=== PATIENT | male | born 2005 | race Caucasian/White ===

== ENCOUNTER → 2023-08-15 | Emergency (ER) | payer SELFPAY ==
--- NOTE | 2023-08-15 13:44 | ER ---
Nurse's Notes [facility] Name: Rod Martínez Age: 18 yrs Sex: Male : 2005 Arrival Date: 08/15/2023 Time: 12:33 Bed IW6 Private MD: Diagnosis: Acute upper respiratory infection, unspecified-RESOLVED Presentation: 08/15 13:01 Chief complaint: Patient states: past two days i called out of work bc I haven't felt iw well, I need a doctors note to go back , rasta been vomiting and having diarrhea , it's starting to get better , I just need a note to go to work tomorrow. Coronavirus screen: At this time, the client does not indicate any symptoms associated with coronavirus-19. Ebola Screen: Patient negative for fever greater than or equal to 101.5 degrees Fahrenheit, and additional compatible Ebola Virus Disease symptoms Patient denies exposure to infectious person. Patient denies travel to an Ebola-affected area in the 21 days before illness onset. No symptoms or risks identified at this time. Initial Sepsis Screen: Does the patient meet any 2 criteria? No. Patient's initial sepsis screen is negative. Does the patient have a suspected source of infection? No. Patient's initial sepsis screen is negative. Risk Assessment: Do you want to hurt yourself or someone else? Patient reports no desire to harm self or others. Onset of symptoms was August 13, 2023. 13:01 Method Of Arrival: Ambulatory iw 13:01 Acuity: SRIDHAR 4 iw Triage Assessment: 13:05 General: Appears in no apparent distress. Behavior is calm, cooperative. iw Historical: - Allergies: 13:03 No Known Allergies; iw - Home Meds: 13:03 None [Active]; iw - PMHx: 13:03 None; iw - Immunization history:: Adult Immunizations unknown. - Social history:: Smoking status: . Screenin:45 [facility] ED Fall Risk Assessment (Adult) Score/Fall Risk Level 0 - 2 = Low Risk. Abuse iw screen: Denies threats or abuse. Denies injuries from another. Nutritional screening: No deficits noted. Tuberculosis screening: No symptoms or risk factors identified. Assessment: 13:05 General: Appears in no apparent distress. Behavior is calm, cooperative. Pain: Denies iw pain. 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 Full function. Cardiovascular: Patient's skin is warm and dry. Respiratory: Respiratory effort is even, unlabored, Respiratory pattern is regular. GI: Abdomen is non-distended. Derm: Skin is intact, is healthy with good turgor. Musculoskeletal: Range of motion: intact in all extremities. Vital Signs: 13:01 BP 117 / 78; Pulse 56; Resp 16; Temp 98.4; Pulse Ox 100% on R/A; iw ED Course: 12:35 Patient arrived in ED. im 12:36 Daniel Velasquez MD is Attending Physician. [facility] 13:03 Triage completed. iw 13:03 Arm band placed on. iw 13:05 Patient has correct armband on for positive identification. Provided Education on: . iw 13:45 No provider procedures requiring assistance completed. Patient did not have IV access iw during this emergency room visit. 13:49 Nella Cee, RN is Primary Nurse. iw Administered Medications: No medications were administered Medication: 13:05 VIS not applicable for this client. iw Outcome: 13:43 Discharge ordered by . [facility] 13:48 Discharged to home ambulatory, iw 13:48 Condition: good 13:48 Discharge instructions given to patient, 13:49 Patient left the ED. iw Signatures: Daniel Velasquez MD MD cha Williams, Irene, RN RN Freida Joseph im
--- NOTE | 2023-08-15 13:44 | EDPHYS ---
Physician Documentation [facility] Name: Rod Martínez Age: 18 yrs Sex: Male : 2005 Arrival Date: 08/15/2023 Time: 12:33 Bed IW6 Private MD: ED Physician Daniel Velasquez HPI: 08/15 13:39 This 18 yrs old Male presents to ER via Ambulatory with complaints of Needs a michelle Doctor's Note. 13:39 NEEDS NOTE , COLD BETTER. Onset: The symptoms/episode began/occurred 3 day(s) ago. [facility] Severity of symptoms: At their worst the symptoms were mild in the emergency department the symptoms are unchanged. The patient has experienced similar episodes in the past, several times. Historical: - Allergies: 13:03 No Known Allergies; iw - Home Meds: 13:03 None [Active]; iw - PMHx: 13:03 None; iw - Immunization history:: Adult Immunizations unknown. - Social history:: Smoking status: . ROS: 13:40 Constitutional: Negative for fever, chills, and weight loss, Eyes: Negative for injury, michelle pain, redness, and discharge, ENT: Negative for injury, pain, and discharge, Neck: Negative for injury, pain, and swelling, Cardiovascular: Negative for chest pain, palpitations, and edema, Respiratory: Negative for shortness of breath, cough, wheezing, and pleuritic chest pain, Abdomen/GI: Negative for abdominal pain, nausea, vomiting, diarrhea, and constipation, Back: Negative for injury and pain, : Negative for injury, bleeding, discharge, and swelling, MS/Extremity: Negative for injury and deformity, Skin: Negative for injury, rash, and discoloration, Neuro: Negative for headache, weakness, numbness, tingling, and seizure, Psych: Negative for depression, anxiety, suicide ideation, homicidal ideation, and hallucinations, Allergy/Immunology: Negative for hives, rash, and allergies, Endocrine: Negative for neck swelling, polydipsia, polyuria, polyphagia, and marked weight changes, Hematologic/Lymphatic: Negative for swollen nodes, abnormal bleeding, and unusual bruising, Exam: 13:40 Constitutional: This is a well developed, well nourished patient who is awake, alert, michelle and in no acute distress. Head/Face: Normocephalic, atraumatic. Eyes: Pupils equal round and reactive to light, extra-ocular motions intact. Lids and lashes normal. Conjunctiva and sclera are non-icteric and not injected. Cornea within normal limits. Periorbital areas with no swelling, redness, or edema. ENT: Nares patent. No nasal discharge, no septal abnormalities noted. Tympanic membranes are normal and external auditory canals are clear. Oropharynx with no redness, swelling, or masses, exudates, or evidence of obstruction, uvula midline. Mucous membranes moist. Neck: Trachea midline, no thyromegaly or masses palpated, and no cervical lymphadenopathy. Supple, full range of motion without nuchal rigidity, or vertebral point tenderness. No Meningismus. Chest/axilla: Normal chest wall appearance and motion. Nontender with no deformity. No lesions are appreciated. Cardiovascular: Regular rate and rhythm with a normal S1 and S2. No gallops, murmurs, or rubs. Normal PMI, no JVD. No pulse deficits. Respiratory: Lungs have equal breath sounds bilaterally, clear to auscultation and percussion. No rales, rhonchi or wheezes noted. No increased work of breathing, no retractions or nasal flaring. Abdomen/GI: Soft, non-tender, with normal bowel sounds. No distension or tympany. No guarding or rebound. No evidence of tenderness throughout. Back: No spinal tenderness. No costovertebral tenderness. Full range of motion. Male : Normal genitalia with no discharge or lesions. Skin: Warm, dry with normal turgor. Normal color with no rashes, no lesions, and no evidence of cellulitis. MS/ Extremity: Pulses equal, no cyanosis. Neurovascular intact. Full, normal range of motion. Neuro: Awake and alert, GCS 15, oriented to person, place, time, and situation. Cranial nerves II-XII grossly intact. Motor strength 5/5 in all extremities. Sensory grossly intact. Cerebellar exam normal. Normal gait. Psych: Awake, alert, with orientation to person, place and time. Behavior, mood, and affect are within normal limits. Vital Signs: 13:01 BP 117 / 78; Pulse 56; Resp 16; Temp 98.4; Pulse Ox 100% on R/A; iw MDM: 12:37 Patient medically screened. [facility] 13:41 Data reviewed: vital signs, nurses notes. Consideration of Admission/Observation michelle Escalation of care including admission/observation considered. I considered the following discharge prescriptions or medication management in the emergency department Medications were administered in the Emergency Department. See MAR. Test considered but Not performed: Labs: NO LABS, NO TEST. Historians other than the Patient: PT WELL INFORMED. Care significantly affected by the following chronic conditions: NO HX. Counseling: I had a detailed discussion with the patient and/or guardian regarding the historical points, exam findings, and any diagnostic results supporting the discharge/admit diagnosis, the need for outpatient follow up, for definitive care, a family practitioner. Administered Medications: No medications were administered Disposition Summary: 08/15/23 13:43 Discharge Ordered Notes: Location: Home michelle Problem: new michelle Symptoms: have improved michelle Condition: Stable michelle Diagnosis - Acute upper respiratory infection, unspecified - RESOLVED michelle Followup: michelle - With: Private Physician - When: 2 - 3 days - Reason: Recheck today's complaints, Continuance of care, Re-evaluation by your physician Discharge Instructions: - Discharge Summary Sheet michelle - Cool Mist Vaporizer michelle - Cough, Adult michelle Forms: - Work release form michelle - Medication Reconciliation Form michelle - Thank You Letter michelle - Antibiotic Education michelle - Prescription Opioid Use michelle - Patient Portal Instructions michelle - Leadership Thank You Letter michelle Signatures: Daniel Velasquez MD MD cha Williams, Irene, RN RN iw
[2023-08-15 13:56] VITALS: BP 117/78; TEMP 98.4; O2SAT 100
== END ==
LOC: ER 12:33
DX: Z02.79 Encounter for issue of other medical certificate (principal)
CPT/HCPCS: 99282

== ENCOUNTER 2024-06-03 12:48 | Emergency (ER) | payer OTHER, SELFPAY ==
[2024-06-03 13:50] LABS: Absolute Eosinophils 0.3 K/uL (0-0.5); Absolute Lymphocytes (CBC) 1.6 K/uL (0.7-4.9); Absolute Monocytes 0.5 K/uL (0.1-1.3); Absolute Neutrophil 4.3 K/uL (1.8-8.0); Basophils % 0.4 % (0-1.3); Eosinophils % 4.1 % (0-4.4); Hematocrit 48.3 % (39.6-49.0); Hemoglobin 16.3 g/dL (13.6-17.9); Lymphocytes % 23.6 % (15.3-44.8); MCH 30.2 pg (27.0-35.0); MCHC 33.7 g/dL (32.0-36.0); MCV 89.5 fL (80-100); MPV 8.2 fL (7.6-11.3); Neutrophils % 64.9 % (41.7-73.7); Nucleated Red Blood Cells % 0.1 % (0-0); Platelets 185 thou/uL (152-406); Red Cell Distribution Width 13.5 % (12.1-15.2)
[2024-06-03 14:10] LABS: Albumin 4.3 g/dL (3.4-5.0); Albumin/Globulin Ratio 1.2 (1.1-1.8); Anion Gap 8.3 mEq/L (5.0-15.0); Bilirubin Direct 0.2 mg/dL (0-0.2); Bilirubin Indirect, Calculated 0.4 mg/dL (0.2-0.8); Bilirubin Total 0.6 mg/dL (0.2-1.0); Globulin 3.7 g/dL (2.3-3.5); Magnesium 2.1 mg/dL (1.6-2.4); Potassium 4.3 mEq/L (3.5-5.1); Troponin High Sensitivity 4.2 pg/mL (<58.9)
--- NOTE | 2024-06-03 14:49 | EDPHYS ---
Physician Documentation [facility] Name: Rod Martínez Age: 18 yrs Sex: Male : 2005 Arrival Date: 06/03/2024 Time: 12:48 Bed 5 Private MD: ED Physician Fernando Asif HPI: 06/03 13:08 This 18 yrs old Male presents to ER via Ambulatory with complaints of Chest Pain. sb4 13:08 Onset: The symptoms/episode began/occurred this morning. patient states he woke up this sb4 morning with stabbing left sided chest pain. he states that the pain subsided but the tightness feeling and palpitations continued throughout the day. he states that the pain returned at work so his boss sent him to be evaluated. he denies any current pain. reports history of depression, anxiety, and tourettes in which he does not take any medications for. denies any other medical problems. does vape daily. denies any recent URI symptoms. Historical: - Allergies: 12:58 No Known Allergies; ko1 - Home Meds: 12:58 None [Active]; ko1 - PMHx: 12:58 Depressive disorder; Anxiety; tourettes; ko1 - PSHx: 12:58 None; ko1 - Immunization history:: Adult Immunizations unknown. - Infectious Disease History:: Denies. - Social history:: Smoking status: Patient denies any tobacco usage or history of. ROS: 13:08 Constitutional: Negative for fever, chills, and weight loss, sb4 13:08 Cardiovascular: Positive for chest pain, 13:08 All other systems are negative, Exam: 13:08 Head/Face: Normocephalic, atraumatic. Eyes: Extra-ocular motions intact. Periorbital sb4 areas with no swelling, redness, or edema. ENT: Mucous membranes moist. Cardiovascular: Regular rate and rhythm with a normal S1 and S2. Respiratory: No increased work of breathing, no retractions or nasal flaring. Abdomen/GI: Soft, non-tender, no distension. Skin: Warm, dry with normal turgor. Normal color with no rashes, no lesions, and no evidence of cellulitis. 13:08 Constitutional: The patient appears alert, awake, anxious, Vital Signs: 12:55 BP 136 / 81; Pulse 110; Resp 19; Temp 97.6; Pulse Ox 100% ; ko1 14:28 BP 108 / 65; Pulse 64; Resp 18; Pulse Ox 98% on R/A; ph 15:10 BP 121 / 63; Pulse 87; Resp 17; Temp 97.7; Pulse Ox 100% on R/A; ap3 MDM: 13:02 Medical Screening Exam initiated sb4 14:47 Data reviewed: vital signs, nurses notes, lab test result(s), EKG, radiologic studies, sb4 and as a result, I will discharge patient. Counseling: I had a detailed discussion with the patient and/or guardian regarding the historical points, exam findings, and any diagnostic results supporting the discharge/admit diagnosis, lab results, radiology results, the need for outpatient follow up, for definitive care, to return to the emergency department if symptoms worsen or persist or if there are any questions or concerns that arise at home. 15:03 Scoring Tools HEART Score: History: ECG: Age: Risk Factors: No Risk Factors Known (0), sb4 Troponin: Total Score = 0. Special discussion: Based on the patient's history, exam, and Dx evaluation, there is no indication for emergent intervention or inpatient Tx. It is understood by the patient/guardian that if the Sx's persist or worsen they need to return immediately for re-evaluation. 06/03 13:08 Order name: Basic Metabolic Panel; Complete Time: 14:18 sb4 06/03 13:08 Order name: CBC with Diff; Complete Time: 14:07 sb4 06/03 13:08 Order name: LFT's; Complete Time: 14:18 sb4 06/03 13:08 Order name: Magnesium; Complete Time: 14:18 sb4 06/03 13:08 Order name: Troponin HS; Complete Time: 14:18 sb4 06/03 13:08 Order name: XRAY Chest (1 view); Complete Time: 16:25 sb4 06/03 13:08 Order name: Cardiac monitoring; Complete Time: 13:46 sb4 06/03 13:08 Order name: EKG - Nurse/Tech; Complete Time: 13:46 sb4 06/03 13:08 Order name: IV Saline Lock; Complete Time: 13:46 sb4 06/03 13:08 Order name: Labs collected and sent; Complete Time: 13:46 sb4 06/03 13:08 Order name: O2 Per Protocol; Complete Time: 13:46 sb4 06/03 13:08 Order name: O2 Sat Monitoring; Complete Time: 13:46 sb4 EC:43 Rate is 93 beats/min. Rhythm is regular, Normal Sinus Rhythm. [place] interval is normal at sb4 184 msec. QRS interval is normal at 74 msec. QT interval is normal at 308 msec. No Q waves. T waves are Normal. No ST changes noted. Clinical impression: No evidence of ischemia. Interpreted by me. Reviewed by me. Administered Medications: 15:09 Not Given (Patient Refused): [id number] mg IVP once ap3 Disposition: 16:01 Co-signature as Attending Physician, Fernando Asif MD I reviewed the patient's care rn provided by the Advanced Practice Provider and agree with the diagnosis and treatment plan. Disposition Summary: 06/03/24 14:48 Discharge Ordered Notes: Location: Home sb4 Problem: new sb4 Symptoms: have improved sb4 Condition: Stable sb4 Diagnosis - Chest pain, unspecified sb4 Followup: sb4 - With: Private Physician - When: 1 week - Reason: Recheck today's complaints, Re-evaluation by your physician Discharge Instructions: - Discharge Summary Sheet sb4 - Nonspecific Chest Pain, Adult sb4 - Pain Without a Known Cause sb4 Forms: - Work release form sb4 - Patient Portal Instructions sb4 - Leadership Thank You Letter sb4 Signatures: Dispatcher [employer] Fernando Castro MD MD rn Oliver, Kathy, RN RN ko1 Tish Gallego PA-C PA-C sb4 Maya Hardin RN ap3 Corrections: (The following items were deleted from the chart) 13:08 13:08 BASIC METABOLIC PANEL+C.LAB.BRZ ordered. EDMS EDMS 13:08 13:08 CBC+H.LAB.BRZ ordered. EDMS EDMS 13:08 13:08 HEPATIC FUNCTION+C.LAB.BRZ ordered. EDMS EDMS 13:08 13:08 MAGNESIUM+C.LAB.BRZ ordered. EDMS EDMS 13:08 13:08 Troponin High Sensitivity+C.LAB.BRZ ordered. EDMS EDMS 13:08 13:08 Chest Single View+RAD.RAD.BRZ ordered. EDMS EDMS
--- NOTE | 2024-06-03 14:49 | ER ---
Nurse's Notes [facility] Name: Rod Martínez Age: 18 yrs Sex: Male : 2005 Arrival Date: 06/03/2024 Time: 12:48 Bed 5 Private MD: Diagnosis: Chest pain, unspecified Presentation: 06/03 12:55 Chief complaint: Patient states: chest pain started at 0500 when I woke up, almost ko1 collapsed from left side chest pain. Coronavirus screen: At this time, the client does not indicate any symptoms associated with coronavirus-19. Ebola Screen: No symptoms or risks identified at this time. Initial Sepsis Screen: Does the patient meet any 2 criteria? No. Patient's initial sepsis screen is negative. Does the patient have a suspected source of infection? No. Patient's initial sepsis screen is negative. Risk Assessment: Do you want to hurt yourself or someone else? Patient reports no desire to harm self or others. Onset of symptoms was June 03, 2024. 12:55 Method Of Arrival: Ambulatory ko1 12:55 Acuity: SRIDHAR 3 ko1 Triage Assessment: 12:58 General: Appears in no apparent distress. Behavior is cooperative, anxious. Pain: ko1 Complains of pain in chest. Cardiovascular: Reports chest pain. Historical: - Allergies: 12:58 No Known Allergies; ko1 - Home Meds: 12:58 None [Active]; ko1 - PMHx: 12:58 Depressive disorder; Anxiety; tourettes; ko1 - PSHx: 12:58 None; ko1 - Immunization history:: Adult Immunizations unknown. - Infectious Disease History:: Denies. - Social history:: Smoking status: Patient denies any tobacco usage or history of. Screenin:45 [facility] ED Fall Risk Assessment (Adult) History of falling in the last 3 months, ph including since admission No falls in past 3 months (0 pts) Confusion or Disorientation No (0 pts) Intoxicated or Sedated No (0 pts) Impaired Gait No (0 pts) Mobility Assist Device Used No (0 pt) Altered Elimination No (0 pt) Score/Fall Risk Level 0 - 2 = Low Risk Oriented to surroundings, Maintained a safe environment, Hourly rounding (assess needs \T\ fall precautionary measures) done. Abuse screen: Denies threats or abuse. Denies injuries from another. Nutritional screening: No deficits noted. Tuberculosis screening: No symptoms or risk factors identified. Assessment: 13:44 General: Appears in no apparent distress. comfortable, slender, Behavior is ph cooperative, appropriate for age, anxious. Pain: Complains of pain in anterior aspect of right upper chest and anterior aspect of left upper chest. Pain: Pain does not radiate. Pain began this morning. Neuro: Level of Consciousness is awake, alert, obeys commands, Oriented to person, place, time, situation. Cardiovascular: Reports chest pain. Respiratory: Airway is patent Respiratory effort is even, unlabored, Respiratory pattern is regular, symmetrical. GI: No signs and/or symptoms were reported involving the gastrointestinal system. Derm: Skin is pink, warm \T\ dry. Musculoskeletal: Circulation, motion, and sensation intact. Range of motion: intact in all extremities. 14:20 Reassessment: Patient appears in no apparent distress at this time. Patient and/or ph family updated on plan of care and expected duration. Pain level reassessed. Patient is alert, oriented x 3, equal unlabored respirations, skin warm/dry/pink. Vital Signs: 12:55 BP 136 / 81; Pulse 110; Resp 19; Temp 97.6; Pulse Ox 100% ; ko1 14:28 BP 108 / 65; Pulse 64; Resp 18; Pulse Ox 98% on R/A; ph 15:10 BP 121 / 63; Pulse 87; Resp 17; Temp 97.7; Pulse Ox 100% on R/A; ap3 Vitals: 14:28 Cardiac Rhythm Assessment Sinus rhythm. ED Course: 12:50 Patient arrived in ED. mr 12:58 Tish Gallego PA-C is PHCP. sb4 12:58 Fernando Asif MD is Attending Physician. sb4 12:58 Triage completed. ko1 12:58 Arm band placed on right wrist. Patient placed in an exam room, on a stretcher, on ko1 telemetry monitor, on pulse oximetry, Patient notified of wait time. 13:06 Maya Hardin, JOSIAS is Primary Nurse. ap3 13:21 XRAY Chest (1 view) In Process Unspecified. EDMS 13:45 Patient has correct armband on for positive identification. Bed in low position. Call light in reach. Side rails up X 1. Client placed on continuous cardiac and pulse oximetry monitoring. NIBP monitoring applied. manager monitoring on. Door closed. Noise minimized. Pillow given. 13:45 Initial lab(s) drawn, by me, sent to lab. EKG done, by ED staff, reviewed by Tish Gallego PA-C. Inserted saline lock: 22 gauge in right antecubital area, using aseptic technique. Blood collected. Flushed with 10 mL NS. Patient maintains SpO2 saturation greater than 95% on room air. 13:46 Basic Metabolic Panel Sent. ph 13:46 CBC with Diff Sent. ph 13:46 LFT's Sent. ph 13:46 Magnesium Sent. ph 13:46 Troponin HS Sent. ph 15:09 No provider procedures requiring assistance completed. IV discontinued, intact, ap3 bleeding controlled, No redness/swelling at site. Pressure dressing applied. 15:10 Provided Education on: discharge instructions. ap3 Administered Medications: 15:09 Not Given (Patient Refused): mg IVP once ap3 Medication: 13:45 VIS not applicable for this client. ph Outcome: 14:48 Discharge ordered by . sb4 15:10 Discharged to home ambulatory, ap3 15:10 Condition: good 15:10 Discharge instructions given to patient, Instructed on discharge instructions, follow up and referral plans. Demonstrated understanding of instructions, follow-up care, 15:10 Patient left the ED. ap3 Signatures: Dispatcher [employer] EDNJ Candice Obrien, Reg Reg mr AdamsonLeona RN RN ph Prokisch, Amanda, RN RN ap3 Azalea Ayala RN RN ko1 Brown, Sophia, PA-C PA-C sb4
--- NOTE | 2024-06-03 15:07 | RAD REPORT ---
EXAMINATION: ONE VIEW CHEST XR CLINICAL INDICATION: Male, 18 years old.,CHEST PAIN TECHNIQUE: Frontal chest projection is submitted. Examination is limited by patient positioning and t echnique. COMPARISON: No prior exam. FINDINGS: The lungs are well inflated and clear. No pneumothorax or sizable effusion. The heart is normal in s ize. Mediastinal contours are unremarkable. IMPRESSION: No acute intrathoracic abnormalities.
[2024-06-03 20:52] VITALS: BP 121/63; TEMP 97.7; O2SAT 100
== END 2024-06-03 15:10 | disposition home or self-care (01) ==
LOC: ER 12:48
DX: R07.9 Chest pain, unspecified (principal)
CPT/HCPCS: 36415; 71045; 80048; 80076; 83735; 84484; 85025; 99284

== ENCOUNTER 2024-06-28 21:26 | Emergency (ER) | payer OTHER ==
--- NOTE | 2024-06-28 22:37 | RAD REPORT ---
EXAM: Chest Pa And Lat (2 Views) HISTORY: 19 years Male COUGH COMPARISON: 06/03/2024 FINDINGS: LUNGS/PLEURA: The lungs are clear. No pleural effusions or pneumothorax. No pulmonary edema. MEDIASTINUM: The mediastinal silhouette is within normal limits. CARDIAC: The cardiac silhouette is within normal limits. UPPER ABDOMEN: No significant abnormality. BONES: No acute abnormality. LINES/TUBES/OTHER: N/A IMPRESSION: No evidence of acute cardiopulmonary disease.
[2024-06-28 23:28] LABS: SARS-CoV-2 Antigen CONTROL BLUE LINE VIS/BG OK; SARS-CoV-2 Antigen Rapid Res Negative (Negative)
--- NOTE | 2024-06-28 23:32 | EDPHYS ---
Physician Documentation [facility] Name: Rod Martínez Age: 19 yrs Sex: Male : 2005 Arrival Date: 06/28/2024 Time: 21:26 Bed DX5 Private MD: ED Physician Daniel Velasquez HPI: 06/28 23:23 This 19 yrs old Male presents to ER via Ambulatory with complaints of Flu dr5 Symptoms. 23:23 Onset: The symptoms/episode began/occurred 5 day(s) ago. Patient is a 19-year-old male dr5 coming in with flulike symptoms that worsened this morning. Patient reports he has not felt well for 5 days that acutely worsened this morning. Patient reports cough, congestion, fever. Patient reports family was over at [place] and multiple members were sick with viral infections.. Historical: - Allergies: 22:03 No Known Allergies; cm10 - PMHx: 22:03 Anxiety; depressive disorder; tourettes; cm10 - Immunization history:: Adult Immunizations up to date. - Infectious Disease History:: Denies. - Social history:: Smoking status: Reported history of juuling and/or vaping. ROS: 23:23 Constitutional: as per hpi dr5 Exam: 23:23 Constitutional: This is a well developed, well nourished patient who is awake, alert, dr5 and in no acute distress. Head/Face: Normocephalic, atraumatic. Eyes: Pupils equal round and reactive to light, extra-ocular motions intact. Lids and lashes normal. Conjunctiva and sclera are non-icteric and not injected. Cornea within normal limits. Periorbital areas with no swelling, redness, or edema. Neck: Trachea midline, no thyromegaly or masses palpated, and no cervical lymphadenopathy. Supple, full range of motion without nuchal rigidity, or vertebral point tenderness. No Meningismus. Chest/axilla: Normal chest wall appearance and motion. Nontender with no deformity. No lesions are appreciated. Cardiovascular: Regular rate and rhythm with a normal S1 and S2. Normal PMI, no JVD. No pulse deficits. Respiratory: Lungs have equal breath sounds bilaterally, clear to auscultation. No rales, rhonchi or wheezes noted. No increased work of breathing, no retractions or nasal flaring. Back: No spinal tenderness. No costovertebral tenderness. Full range of motion. Skin: Warm, dry with normal turgor. Normal color with no rashes, no lesions, and no evidence of cellulitis. Neuro: Awake and alert, GCS 15, oriented to person, place, time, and situation. Cranial nerves II-XII grossly intact. Motor strength 5/5 in all extremities. Sensory grossly intact. Cerebellar exam normal. Normal gait. Vital Signs: 22:02 BP 119 / 68; Pulse 87; Resp 15; Temp 97.7(TE); Pulse Ox 99% on R/A; Weight 80.74 kg; cm10 Height 5 ft. 7 in. ; Pain 3/10; 22:02 Body Mass Index 27.88 (80.74 kg, 170.18 cm) cm10 22:02 Pain Scale: Adult cm10 MDM: 21:44 Medical Screening Exam initiated dr5 23:36 Differential diagnosis: viral Infection, bacterial infection, URI, Strep. Data dr5 reviewed: vital signs, nurses notes, lab test result(s), Flu: negative Strep. Care significantly affected by the following chronic conditions: Anxiety, Depression. Care significantly affected by the following Social Determinants of Health: Poor access to healthcare and/or lack of insurance, Poor access to transportation, Problems related to employment. Counseling: I had a detailed discussion with the patient and/or guardian regarding the historical points, exam findings, and any diagnostic results supporting the discharge/admit diagnosis, the presence of at least one elevated blood pressure reading (>120/80) during this emergency department visit, lab results, the need for outpatient follow up, for definitive care, a family practitioner, to return to the emergency department if symptoms worsen or persist or if there are any questions or concerns that arise at home. ED course: Discussed patient was strep positive. Amoxicillin prescription given. Recommended patient switch out toothbrush in 3 days. Alternate Tylenol Motrin as needed for fever and sore throat. All questions answered.. 06/28 22:07 Order name: SARS RAPID; Complete Time: : dr5 06/28 22:07 Order name: Influenza Screen (a \T\ B); Complete Time: : dr5 06/28 22:07 Order name: Strep; Complete Time: : dr5 06/28 22:07 Order name: Chest Pa And Lat (2 Views) XRAY; Complete Time: 22:38 dr5 Administered Medications: No medications were administered Disposition Summary: 06/28/24 23:31 Discharge Ordered Notes: Location: Home dr5 Condition: Stable dr5 Diagnosis - Streptococcal pharyngitis dr5 Followup: dr5 - With: Emergency Department - When: As needed - Reason: Worsening of condition Followup: dr5 - With: Private Physician - When: 1 - 2 days - Reason: Recheck today's complaints, Continuance of care, Re-evaluation by your physician Discharge Instructions: - Discharge Summary Sheet dr5 - Strep Throat, Adult, [id number] dr5 Forms: - Work release form dr5 - Medication Reconciliation Form dr5 - Antibiotic Education dr5 - Patient Portal Instructions dr5 - Leadership Thank You Letter dr5 Prescriptions: - Amoxicillin 500 mg Oral capsule - take 1 capsule ORAL route every 12 hours for 10 days; 20 tablet; Refills: 0, dr5 Product Selection Permitted Addendum: 06/30/2024 06:43 Co-signature as Attending Physician, Daniel Velasquez MD I agree with the assessment and c ortega plan of care. Signatures: Dispatcher [employer] EDAK Daniel Velasquez MD MD cha Martinez, Clarissa, RN RN cm10 Zaire Jordan, [employer]ADDLE [employer]ARNESS [employer]KER-C SADDLE AND HARNESS MAKER-Cdr5 Corrections: (The following items were deleted from the chart) 06/28 22:08 22:08 SARS-COV-2 Antigen Rapid+I.LAB.BRZ ordered. EDAK EDAK 22:08 22:08 Influenza Screen (A \T\ B)+BA.LAB.BRZ ordered. EDAK EDMS 22:08 22:08 Group A Streptococcus Rapid Sc+BA.LAB.BRZ ordered. EDAK EDAK
--- NOTE | 2024-06-28 23:32 | ER ---
Nurse's Notes [facility] Name: Rod Martínez Age: 19 yrs Sex: Male : 2005 Arrival Date: 06/28/2024 Time: 21:26 Bed DX5 Private MD: Diagnosis: Streptococcal pharyngitis Presentation: 06/28 22:02 Chief complaint: Patient states: Cough, sore throat, body aches, and diarrhea onset cm10 today. Pt also reports nausea. Coronavirus screen: Client denies travel out of the [place] in the last 14 days. Ebola Screen: Patient denies travel to an Ebola-affected area in the 21 days before illness onset. No symptoms or risks identified at this time. Initial Sepsis Screen: Does the patient meet any 2 criteria? No. Patient's initial sepsis screen is negative. Does the patient have a suspected source of infection? No. Patient's initial sepsis screen is negative. Risk Assessment: Do you want to hurt yourself or someone else? Patient reports no desire to harm self or others. Onset of symptoms was June 28, 2024. 22:02 Method Of Arrival: Ambulatory cm10 22:02 Acuity: SRIDHAR 4 cm10 Triage Assessment: 22:03 General: Appears in no apparent distress. uncomfortable, Behavior is calm, cooperative, cm10 appropriate for age. Neuro: No deficits noted. Level of Consciousness is awake, alert, obeys commands, Oriented to person, place, time, situation, Appropriate for age. Respiratory: No deficits noted. Airway is patent Respiratory effort is even, unlabored, Respiratory pattern is regular, symmetrical. Historical: - Allergies: 22:03 No Known Allergies; cm10 - PMHx: 22:03 Anxiety; depressive disorder; tourettes; cm10 - Immunization history:: Adult Immunizations up to date. - Infectious Disease History:: Denies. - Social history:: Smoking status: Reported history of juuling and/or vaping. Screenin:42 [facility] ED Fall Risk Assessment (Adult) History of falling in the last 3 months, vc1 including since admission No falls in past 3 months (0 pts) Confusion or Disorientation No (0 pts) Intoxicated or Sedated No (0 pts) Impaired Gait No (0 pts) Mobility Assist Device Used No (0 pt) Altered Elimination No (0 pt) Score/Fall Risk Level 0 - 2 = Low Risk Oriented to surroundings, Maintained a safe environment, Educated pt \T\ family on fall prevention, incl call for assistance when getting out of bed. Abuse screen: Denies threats or abuse. Nutritional screening: No deficits noted. Tuberculosis screening: No symptoms or risk factors identified. Vital Signs: 22:02 BP 119 / 68; Pulse 87; Resp 15; Temp 97.7(TE); Pulse Ox 99% on R/A; Weight 80.74 kg; cm10 Height 5 ft. 7 in. ; Pain 3/10; 22:02 Body Mass Index 27.88 (80.74 kg, 170.18 cm) cm10 22:02 Pain Scale: Adult cm10 ED Course: 21:29 Patient arrived in ED. jj6 21:43 [facility]aire [facility]5 21:43 Daniel Velasquez MD is Attending Physician. dr5 22:03 Triage completed. cm10 22:03 Arm band placed on right wrist. Patient placed in waiting room. cm10 22:36 Chest Pa And Lat (2 Views) XRAY In Process Unspecified. EDMS 23:01 Strep Sent. al5 23:01 Influenza Screen (a \T\ B) Sent. al5 23:01 SARS RAPID Sent. al5 23:42 Patient has correct armband on for positive identification. seen in diagnostic chair. vc1 Provided Education on: complete abx. 23:43 No provider procedures requiring assistance completed. Patient did not have IV access vc1 during this emergency room visit. Administered Medications: No medications were administered Medication: 23:42 VIS not applicable for this client. vc1 Outcome: 23:31 Discharge ordered by MD. dr5 23:43 Discharged to home ambulatory, vc1 23:43 Condition: good 23:43 Discharge instructions given to patient, Instructed on discharge instructions, follow up and referral plans. medication usage, Demonstrated understanding of instructions, follow-up care, medications, Prescriptions given X 1, 23:44 Patient left the ED. vc1 Signatures: Dispatcher [employer] EDMS Jose Carlos Andria jj6 Sabrina Wagner RN RN vc1 Mary Bocanegra RN RN cm10 Maya Mckinley RN RN al5 Zaire Jordan FNP-C [employer]HW[employer] ENGINEERING TEACHER-Cdr5
[2024-06-29 07:48] VITALS: BP 119/68; TEMP 97.7; O2SAT 99
== END 2024-06-28 23:44 | disposition home or self-care (01) ==
LOC: ER 21:26
DX: J02.0 Streptococcal pharyngitis (principal); F41.9 Anxiety disorder, unspecified; F32.A Depression, unspecified; F95.2 Tourette's disorder; F17.290 Nicotine dependence, other tobacco product, uncomplicated; Z11.52 Encounter for screening for COVID-19
CPT/HCPCS: 36415; 71046; 87081; 87804; 87811; 99283

== ENCOUNTER 2024-08-23 20:00 | Emergency (ER) | payer OTHER ==
--- NOTE | 2024-08-23 20:21 | EDPHYS ---
Physician Documentation [facility] Name: Rod Martínez Age: 19 yrs Sex: Male : 2005 Arrival Date: 08/23/2024 Time: 20:00 Bed IW4 Private MD: ED Physician Kwame Shukla HPI: 08/23 20:17 This 19 yrs old Male presents to ER via Ambulatory with complaints of Nausea/Vomiting. sp3 20:17 19-year-old male with a history of anxiety and depression now presents to the ED with sp3 chief complaint nausea and vomiting and several episodes of feeding some gas that she food and was unable to go to work. He now is here for a work note and full resolution of symptoms. He denies any ongoing fever, headache, URI symptoms, chest pain, shortness of breath, abdominal pain, diarrhea, rash, syncope or any other signs or symptoms on ROS at this time.. Historical: - Allergies: 20:14 No Known Allergies; ap3 - PMHx: 20:14 Anxiety; depressive disorder; tourettes; ap3 - Immunization history:: Client reports having NOT received the Covid vaccine. Flu vaccine is not up to date. - Infectious Disease History:: Denies. - Social history:: Smoking status: Patient reports the use of cigarette tobacco products, Reported history of juuling and/or vaping. ROS: 20:19 Constitutional: Negative for fever, chills, and weight loss, Eyes: Negative for injury, sp3 pain, redness, and discharge, Neck: Negative for injury, pain, and swelling, Cardiovascular: Negative for chest pain, palpitations, and edema, Respiratory: Negative for shortness of breath, cough, wheezing, and pleuritic chest pain, Back: Negative for injury and pain, MS/Extremity: Negative for injury and deformity, Skin: Negative for injury, rash, and discoloration, Neuro: Negative for headache, weakness, numbness, tingling, and seizure, 20:19 All other systems are negative, Exam: 20:20 Constitutional: This is a well developed, well nourished patient who is awake, alert, sp3 and in no acute distress. Head/Face: Normocephalic, atraumatic. Eyes: Pupils equal round and reactive to light, extra-ocular motions intact. Lids and lashes normal. Conjunctiva and sclera are non-icteric and not injected. Cornea within normal limits. Periorbital areas with no swelling, redness, or edema. ENT: Nares patent. No nasal discharge, no septal abnormalities noted. External auditory canals are clear. Oropharynx with no redness, swelling, or masses, exudates, or evidence of obstruction, uvula midline. Mucous membranes moist. Neck: Trachea midline, no thyromegaly or masses palpated, and no cervical lymphadenopathy. Supple, full range of motion without nuchal rigidity, or vertebral point tenderness. No Meningismus. Chest/axilla: Normal chest wall appearance and motion. Nontender with no deformity. No lesions are appreciated. Cardiovascular: Regular rate and rhythm with a normal S1 and S2. No gallops, murmurs, or rubs. Normal PMI, no JVD. No pulse deficits. Respiratory: Lungs have equal breath sounds bilaterally, clear to auscultation and percussion. No rales, rhonchi or wheezes noted. No increased work of breathing, no retractions or nasal flaring. Abdomen/GI: Soft, non-tender, with normal bowel sounds. No distension or tympany. No guarding or rebound. No evidence of tenderness throughout. Back: No spinal tenderness. No costovertebral tenderness. Full range of motion. Skin: Warm, dry with normal turgor. Normal color with no rashes, no lesions, and no evidence of cellulitis. MS/ Extremity: Pulses equal, no cyanosis. Neurovascular intact. Full, normal range of motion. Neuro: Awake and alert, GCS 15, oriented to person, place, time, and situation. Cranial nerves II-XII grossly intact. Motor strength 5/5 in all extremities. Sensory grossly intact. Cerebellar exam normal. Normal gait. Psych: Awake, alert, with orientation to person, place and time. Behavior, mood, and affect are within normal limits. Vital Signs: 20:12 BP 117 / 67; Pulse 83; Resp 18; Temp 97.7; Pulse Ox 100% ; Weight 81.65 kg; Height 5 ap3 ft. 7 in. ; 20:12 Body Mass Index 28.19 (81.65 kg, 170.18 cm) ap3 MDM: 20:06 Medical Screening Exam initiated sp3 20:20 Data reviewed: vital signs, nurses notes. ED course: No further intervention indicated. sp3 Work note given for return to work tomorrow.. 08/23 20:06 Order name: Vital Signs; Complete Time: 20:18 sp3 Administered Medications: No medications were administered Disposition Summary: 08/23/24 20:20 Discharge Ordered Notes: Location: Home sp3 Condition: Stable sp3 Diagnosis - Nausea sp3 Followup: sp3 - With: Private Physician - When: Upon discharge from the Emergency Department - Reason: Recheck today's complaints, Continuance of care Discharge Instructions: - Discharge Summary Sheet sp3 - Vomiting, Adult sp3 Forms: - Work release form sp3 - Medication Reconciliation Form sp3 - Antibiotic Education sp3 - Prescription Opioid Use sp3 - Patient Portal Instructions sp3 - Leadership Thank You Letter sp3 Signatures: Maya Hardin RN RN ap3 Kwame Shukla MD MD sp3
--- NOTE | 2024-08-23 20:21 | ER ---
Nurse's Notes [facility] Name: Rod Martínez Age: 19 yrs Sex: Male : 2005 Arrival Date: 08/23/2024 Time: 20:00 Bed IW4 Private MD: Diagnosis: Nausea Presentation: 08/23 20:12 Chief complaint: Patient states: "I started violently vomiting this morning at a gas ap3 station on my way to work, and then I felt like I was going to pass out, but didn't after I got some air." Patient states he feels better now, but is needing a Dr's note to return to work. Coronavirus screen: At this time, the client does not indicate any symptoms associated with coronavirus-19. Ebola Screen: No symptoms or risks identified at this time. Initial Sepsis Screen: Does the patient meet any 2 criteria? No. Patient's initial sepsis screen is negative. Does the patient have a suspected source of infection? No. Patient's initial sepsis screen is negative. Risk Assessment: Do you want to hurt yourself or someone else? Patient reports no desire to harm self or others. Onset of symptoms was August 23, 2024. 20:12 Method Of Arrival: Ambulatory ap3 20:12 Acuity: SRIDHAR 4 ap3 Triage Assessment: 20:15 General: Appears in no apparent distress. Behavior is calm, cooperative, appropriate ap3 for age. Pain: Denies pain. Neuro: Level of Consciousness is awake, alert, confused, Oriented to person, place, time, situation, Appropriate for age. Cardiovascular: Patient's skin is warm and dry. Respiratory: Airway is patent Respiratory effort is even, unlabored, Respiratory pattern is regular, symmetrical. GI: Reports nausea, vomiting. Historical: - Allergies: 20:14 No Known Allergies; ap3 - PMHx: 20:14 Anxiety; depressive disorder; tourettes; ap3 - Immunization history:: Client reports having NOT received the Covid vaccine. Flu vaccine is not up to date. - Infectious Disease History:: Denies. - Social history:: Smoking status: Patient reports the use of cigarette tobacco products, Reported history of juuling and/or vaping. Screenin:15 [facility] ED Fall Risk Assessment (Adult) History of falling in the last 3 months, ap3 including since admission No falls in past 3 months (0 pts) Confusion or Disorientation No (0 pts) Intoxicated or Sedated No (0 pts) Impaired Gait No (0 pts) Mobility Assist Device Used No (0 pt) Altered Elimination No (0 pt) Score/Fall Risk Level 0 - 2 = Low Risk Oriented to surroundings, Maintained a safe environment, Educated pt \\T\\ family on fall prevention, incl call for assistance when getting out of bed, Assessed \\T\\ reinforced patient's understanding of fall precautions, Hourly rounding (assess needs \\T\\ fall precautionary measures) done, Used ambulatory aids as needed (educated on \\T\\ assisted with). Abuse screen: Denies threats or abuse. Nutritional screening: No deficits noted. Tuberculosis screening: No symptoms or risk factors identified. Vital Signs: 20:12 BP 117 / 67; Pulse 83; Resp 18; Temp 97.7; Pulse Ox 100% ; Weight 81.65 kg; Height 5 ap3 ft. 7 in. ; 20:12 Body Mass Index 28.19 (81.65 kg, 170.18 cm) ap3 ED Course: 20:04 Patient arrived in ED. gm2 20:05 Kwame Shukla MD is Attending Physician. sp3 20:14 Triage completed. ap3 20:15 Arm band placed on right wrist. ap3 20:25 Patient has correct armband on for positive identification. Provided Education on: . ap3 20:25 No provider procedures requiring assistance completed. Patient did not have IV access ap3 during this emergency room visit. Administered Medications: No medications were administered Medication: 20:16 VIS not applicable for this client. ap3 Outcome: 20:20 Discharge ordered by . sp3 20:25 Discharged to home ambulatory, ap3 20:25 Condition: good 20:25 Discharge instructions given to patient, Instructed on discharge instructions, follow up and referral plans. Demonstrated understanding of instructions, follow-up care, 20:25 Patient left the ED. ap3 Signatures: Maya Hardin RN RN ap3 Kwame Shukla MD MD sp3 Marta Tucker gm2
[2024-08-23 20:48] VITALS: BP 117/67; TEMP 97.7; O2SAT 100
== END 2024-08-23 20:25 | disposition home or self-care (01) ==
LOC: ER 20:00
DX: R11.0 Nausea (principal); Z72.0 Tobacco use
CPT/HCPCS: 99282

== ENCOUNTER 2024-09-06 21:31 | Emergency (ER) | payer OTHER ==
[2024-09-06] MEDS ORDERED: NA CHLORIDE 0.9% 1,000 ML ONE (22:25)
[2024-09-06] MEDS ORDERED: ONDANSETRON 4 MG/2 ML VIAL ONE (22:25)
[2024-09-06 22:39] LABS: Absolute Basophils 0.1 K/uL (0-0.5); Absolute Eosinophils 0.4 K/uL (0-0.5); Absolute Lymphocytes (CBC) 3.2 K/uL (0.7-4.9); Absolute Monocytes 0.7 K/uL (0.1-1.3); Absolute Neutrophil 4.4 K/uL (1.8-8.0); Basophils % 0.6 % (0-1.3); Eosinophils % 4.6 % (0-4.4); Hematocrit 47.4 % (39.6-49.0); Hemoglobin 16.1 g/dL (13.6-17.9); Lymphocytes % 36.6 % (15.3-44.8); MCH 30.7 pg (27.0-35.0); MCHC 33.9 g/dL (32.0-36.0); MCV 90.7 fL (80-100); MPV 8.5 fL (7.6-11.3); Monocytes % 7.9 % (3.3-12.3); Neutrophils % 50.3 % (41.7-73.7); Nucleated Red Blood Cells % 0.1 % (0-0); Platelets 186 thou/uL (152-406); RBC Red Blood Cell Count 5.23 M/uL (4.33-5.43); Red Cell Distribution Width 13.8 % (12.1-15.2)
[2024-09-06 22:44] LABS: Albumin 4.2 g/dL (3.4-5.0); Albumin/Globulin Ratio 1.2 (1.1-1.8); Bilirubin Total 0.5 mg/dL (0.2-1.0); Globulin 3.4 g/dL (2.3-3.5); Protein, Total 7.6 g/dL (6.4-8.2)
[2024-09-06 23:05] LABS: Influenza A Ag Negative; Influenza B Ag Negative; SARS-CoV-2 Antigen Rapid Res Negative (Negative)
--- NOTE | 2024-09-06 23:08 | ER ---
Nurse's Notes [facility] Name: Rod Martínez Age: 19 yrs Sex: Male : 2005 Arrival Date: 09/06/2024 Time: 21:31 Bed 25 Private MD: Diagnosis: Nausea with vomiting, unspecified;Diarrhea, unspecified Presentation: 09/06 21:47 Chief complaint: N/V/D, headache, and body aches x 5 days. Not tolerating fluids. hb Coronavirus screen: Client presents with at least one sign or symptom that may indicate coronavirus-19. Provider contacted for isolation considerations. Ebola Screen: No symptoms or risks identified at this time. Initial Sepsis Screen: Does the patient meet any 2 criteria? No. Patient's initial sepsis screen is negative. Does the patient have a suspected source of infection? No. Patient's initial sepsis screen is negative. Risk Assessment: Do you want to hurt yourself or someone else? Patient reports no desire to harm self or others. Onset of symptoms was September 01, 2024. 21:47 Method Of Arrival: Ambulatory hb 21:47 Acuity: SRIDHAR 3 hb Historical: - Allergies: 21:48 No Known Allergies; hb - PMHx: 21:48 Anxiety; depressive disorder; tourettes; hb - PSHx: 21:48 None; hb - Immunization history:: Adult Immunizations up to date. - Infectious Disease History:: Denies. - Social history:: Smoking status: Reported history of juuling and/or vaping. Screenin:45 [facility] ED Fall Risk Assessment (Adult) History of falling in the last 3 months, jb4 including since admission No falls in past 3 months (0 pts) Confusion or Disorientation No (0 pts) Intoxicated or Sedated No (0 pts) Impaired Gait No (0 pts) Mobility Assist Device Used No (0 pt) Altered Elimination No (0 pt) Score/Fall Risk Level 0 - 2 = Low Risk Oriented to surroundings, Maintained a safe environment. Abuse screen: Denies threats or abuse. Nutritional screening: No deficits noted. Tuberculosis screening: No symptoms or risk factors identified. Assessment: 22:12 General: Appears in no apparent distress. comfortable, Behavior is calm, cooperative, jb4 appropriate for age. Pain: Complains of pain in abdomen Pain does not radiate. Pain currently is 2 out of 10 on a pain scale. Quality of pain is described as aching. Neuro: Level of Consciousness is awake, alert, obeys commands, Oriented to person, place, time, situation. Cardiovascular: Patient's skin is warm and dry. Respiratory: Airway is patent Respiratory effort is even, unlabored, Respiratory pattern is regular, symmetrical. GI: Abdomen is flat, non-distended, Reports nausea, vomiting. Derm: Skin is intact, Skin is pink, warm \T\ dry. Musculoskeletal: Circulation, motion, and sensation intact. Range of motion: intact in all extremities. 23:16 Reassessment: Patient appears in no apparent distress at this time. Patient and/or jb4 family updated on plan of care and expected duration. Pain level reassessed. Patient is alert, oriented x 3, equal unlabored respirations, skin warm/dry/pink. Vital Signs: 21:47 BP 115 / 84; Pulse 93; Resp 16; Temp 99(O); Pulse Ox 99% on R/A; Weight 84.82 kg; hb Height 5 ft. 7 in. ; Pain 2/10; 22:45 BP 118 / 75; Pulse 65; Resp 16; Pulse Ox 100% on R/A; jb4 23:16 BP 110 / 57; Pulse 53; Resp 16; Pulse Ox 99% on R/A; jb4 21:47 Body Mass Index 29.29 (84.82 kg, 170.18 cm) hb 21:47 Pain Scale: Adult hb ED Course: 21:35 Patient arrived in ED. gm2 21:36 Ana M Marie FNP-C is [facility]. kb 21:36 Horacio Hamilton MD is Attending Physician. kb 21:48 Triage completed. hb 21:48 Arm band placed on. hb 22:12 Inserted saline lock: 20 gauge in left forearm, using aseptic technique. Blood jb4 collected. 22:30 COVID-19 Ag + Flu A+B Ag Sent. jb4 22:30 Lipase Sent. jb4 22:30 CMP Sent. jb4 22:30 CBC with Diff Sent. jb4 22:45 Patient has correct armband on for positive identification. Bed in low position. Call jb4 light in reach. Side rails up X 1. Provided Education on: plan of care. 22:46 Christophe Benavidez, RN is Primary Nurse. jb4 23:16 No provider procedures requiring assistance completed. IV discontinued, intact, jb4 bleeding controlled, No redness/swelling at site. Pressure dressing applied. Administered Medications: 22:29 Drug: Ondansetron IVP 4 mg IVP once; over 2 minutes Route: IVP; Site: left forearm; jb4 23:17 Follow up: Response: No adverse reaction; Marked relief of symptoms jb4 22:30 Drug: NS 0.9% IV 1000 ml IV at 1 bolus Per protocol; to be given as a bolus over 60 jb4 minutes Route: IV; Rate: 1 bolus; Site: left forearm; 23:17 Follow up: Response: No adverse reaction; IV Status: Pt discharged; IV Intake: 950ml jb4 Medication: 22:45 VIS not applicable for this client. jb4 Intake: 23:17 IV: 950ml; Total: 950ml. jb4 Outcome: 23:07 Discharge ordered by . kb 23:16 Discharged to home ambulatory, jb4 23:16 Condition: stable 23:16 Discharge instructions given to patient, Instructed on discharge instructions, follow up and referral plans. medication usage, Demonstrated understanding of instructions, follow-up care, medications, Prescriptions given X 1, 23:17 Patient left the ED. jb4 Signatures: Ana M Marie, GWENDOLYN-C CLINICAL REVIEW SPECIALIST-Ckb Kami Taylor RN RN Christophe Benavidez RN RN jb4 Marta Tucker 2 Corrections: (The following items were deleted from the chart) 22:47 22:12 BP 118 / 75; Pulse 65bpm; Resp 16bpm; Pulse Ox 100% RA; jb4 jb4
--- NOTE | 2024-09-06 23:08 | EDPHYS ---
Physician Documentation [facility] Name: Rod Martínez Age: 19 yrs Sex: Male : 2005 Arrival Date: 09/06/2024 Time: 21:31 Bed 25 Private MD: ED Physician Horacio Hamilton HPI: 09/06 22:28 This 19 yrs old Male presents to ER via Ambulatory with complaints of Nausea/Vomiting. kb 22:28 Pt is a 19 year old male who presents for cough, n/v/d, bodyaches and headache that kb started 4 days ago. Denies fever. . Historical: - Allergies: 21:48 No Known Allergies; hb - PMHx: 21:48 Anxiety; depressive disorder; tourettes; hb - PSHx: 21:48 None; hb - Immunization history:: Adult Immunizations up to date. - Infectious Disease History:: Denies. - Social history:: Smoking status: Reported history of juuling and/or vaping. ROS: 22:28 Constitutional: As per HPI kb Exam: 22:28 Constitutional: This is a well developed, well nourished patient who is awake, alert, kb and in no acute distress. Head/Face: Normocephalic, atraumatic. ENT: Moist Mucous membranes Cardiovascular: Regular rate Respiratory: Respirations even and unlabored. No increased work of breathing. Talking in full sentences Abdomen/GI: Soft, non-tender. No distention Skin: Warm, dry with normal turgor. Normal color. MS/ Extremity: Pulses equal, no cyanosis. Neurovascular intact. Full, normal range of motion. Neuro: Awake and alert, GCS 15, oriented to person, place, time, and situation. Vital Signs: 21:47 BP 115 / 84; Pulse 93; Resp 16; Temp 99(O); Pulse Ox 99% on R/A; Weight 84.82 kg; hb Height 5 ft. 7 in. ; Pain 2/10; 22:45 BP 118 / 75; Pulse 65; Resp 16; Pulse Ox 100% on R/A; jb4 23:16 BP 110 / 57; Pulse 53; Resp 16; Pulse Ox 99% on R/A; jb4 21:47 Body Mass Index 29.29 (84.82 kg, 170.18 cm) hb 21:47 Pain Scale: Adult hb MDM: 21:36 Medical Screening Exam initiated kb 23:06 Data reviewed: vital signs, nurses notes. kb 23:07 Differential diagnosis: viral gastroenteritis, flu, covid, viral illness. Test kb considered but Not performed: CT: ct abd considered but pt has no abd tenderness, nontoxic in appearance. Counseling: I had a detailed discussion with the patient and/or guardian regarding the historical points, exam findings, and any diagnostic results supporting the discharge/admit diagnosis, lab results, the need for outpatient follow up, a family practitioner, to return to the emergency department if symptoms worsen or persist or if there are any questions or concerns that arise at home. 09/06 21:52 Order name: CBC with Diff; Complete Time: 22:50 kb 09/06 21:52 Order name: CMP; Complete Time: 22:50 kb 09/06 21:52 Order name: Lipase; Complete Time: 22:50 kb 09/06 21:52 Order name: COVID-19 Ag + Flu A+B Ag; Complete Time: 23:06 kb 09/06 21:52 Order name: IV Saline Lock; Complete Time: 22:30 kb 09/06 21:52 Order name: Labs collected and sent; Complete Time: 22:30 kb Administered Medications: 22:29 Drug: Ondansetron IVP 4 mg IVP once; over 2 minutes Route: IVP; Site: left forearm; jb4 23:17 Follow up: Response: No adverse reaction; Marked relief of symptoms jb4 22:30 Drug: NS 0.9% IV 1000 ml IV at 1 bolus Per protocol; to be given as a bolus over 60 jb4 minutes Route: IV; Rate: 1 bolus; Site: left forearm; 23:17 Follow up: Response: No adverse reaction; IV Status: Pt discharged; IV Intake: 950ml jb4 Disposition: 09/07 00:30 Co-signature as Attending Physician, Horacio Hamilton MD I reviewed the patient's care rt provided by the Advanced Practice Provider and agree with the diagnosis and treatment plan. Disposition Summary: 09/06/24 23:07 Discharge Ordered Notes: Location: Home kb Condition: Stable kb Diagnosis - Nausea with vomiting, unspecified kb - Diarrhea, unspecified kb Followup: kb - With: Emergency Department - When: As needed - Reason: Worsening of condition Followup: kb - With: Private Physician - When: 2 - 3 days - Reason: Recheck today's complaints, Continuance of care, Re-evaluation by your physician Discharge Instructions: - Discharge Summary Sheet kb - Food Choices to Help Relieve Diarrhea, Adult kb - Viral Gastroenteritis, Adult, [id number] kb Forms: - Work release form kb - Medication Reconciliation Form kb - Antibiotic Education kb - Prescription Opioid Use kb - Patient Portal Instructions kb - Leadership Thank You Letter kb Prescriptions: - Zofran 4 mg Oral tablet - take 1 tablet ORAL route every 6 hours As needed; 12 tablet; Refills: 0, kb Product Selection Permitted Signatures: Dispatcher [employer] EDMS Ana M Marie, SUPERVISOR ACCOUNTS RECEIVABLE-C SUPERVISOR ACCOUNTS RECEIVABLE-Kami Bolanos, RN RN Christophe Benavidez RN RN jb4 Horacio Hamilton MD MD rt
[2024-09-06 23:57] VITALS: TEMP 99
[2024-09-06 23:59] VITALS: BP 110/57; O2SAT 99
== END 2024-09-06 23:17 | disposition home or self-care (01) ==
LOC: ER 21:31
DX: R11.2 Nausea with vomiting, unspecified (principal); R19.7 Diarrhea, unspecified; Z11.52 Encounter for screening for COVID-19
CPT/HCPCS: 96361; 85025; 36415; 83690; 80053; 96374; 99284; 87428; J2405; J7030

== ENCOUNTER 2024-10-14 13:46 | Emergency (ER) | payer OTHER ==
[2024-10-14] MEDS ORDERED: ONDANSETRON 4 MG/2 ML VIAL ONE (14:15)
[2024-10-14] MEDS ORDERED: NA CHLORIDE 0.9% 1,000 ML ONE (14:16)
[2024-10-14 14:34] LABS: Absolute Eosinophils 0.3 K/uL (0-0.5); Absolute Lymphocytes (CBC) 2.4 K/uL (0.7-4.9); Absolute Monocytes 0.5 K/uL (0.1-1.3); Absolute Neutrophil 6.3 K/uL (1.8-8.0); Basophils % 0.4 % (0-1.3); Eosinophils % 2.9 % (0-4.4); Hematocrit 44.5 % (39.6-49.0); Hemoglobin 15.3 g/dL (13.6-17.9); Lymphocytes % 24.8 % (15.3-44.8); MCH 30.8 pg (27.0-35.0); MCHC 34.3 g/dL (32.0-36.0); MCV 89.8 fL (80-100); MPV 8.5 fL (7.6-11.3); Monocytes % 5.6 % (3.3-12.3); Neutrophils % 66.3 % (41.7-73.7); Nucleated Red Blood Cells % 0.1 % (0-0); Platelets 200 thou/uL (152-406); RBC Red Blood Cell Count 4.96 M/uL (4.33-5.43); Red Cell Distribution Width 13.3 % (12.1-15.2)
[2024-10-14 14:37] LABS: Specific Gravity 1.007 (1.005-1.030); Urine Bilirubin NEGATIVE (Negative); Urine Blood Negative (Negative); Urine Clarity Clear (Clear); Urine Color Colorless (Yellow); Urine Glucose NEGATIVE (Negative); Urine Ketones NEGATIVE (Negative); Urine Microscopic Reflex YN NO UMIC; Urine Nitrite NEGATIVE (Negative); Urine Protein NEGATIVE (Negative); Urine Urobilinogen Normal (Normal)
[2024-10-14 14:46] LABS: Albumin 3.9 g/dL (3.4-5.0); Albumin/Globulin Ratio 1.1 (1.1-1.8); Anion Gap 6.8 mEq/L (5.0-15.0); Bilirubin Total 0.5 mg/dL (0.2-1.0); Globulin 3.7 g/dL (2.3-3.5); Potassium 3.8 mEq/L (3.5-5.1); Protein, Total 7.6 g/dL (6.4-8.2)
--- NOTE | 2024-10-14 14:50 | ER ---
Nurse's Notes [facility] Name: Rod Martínez Age: 19 yrs Sex: Male : 2005 Arrival Date: 10/14/2024 Time: 13:46 Bed 18 Private MD: Diagnosis: Viral gastroenteritis, nausea, vomiting, diarrhea Presentation: 10/14 14:03 Chief complaint: Friend and/or Co-Worker states: nauseous, dizzy, shaking , vomiting iw today , he woke up at 7am and felt dizzy and light headed, could not stand up straight. Coronavirus screen: At this time, the client does not indicate any symptoms associated with coronavirus-19. Ebola Screen: No symptoms or risks identified at this time. Initial Sepsis Screen: Does the patient meet any 2 criteria? No. Patient's initial sepsis screen is negative. Does the patient have a suspected source of infection? No. Patient's initial sepsis screen is negative. Risk Assessment: Do you want to hurt yourself or someone else? Patient reports no desire to harm self or others. Onset of symptoms was October 14, 2024. 14:03 Method Of Arrival: Wheelchair iw 14:03 Acuity: SRIDHAR 3 iw Historical: - Allergies: 14:05 No Known Allergies; iw - PMHx: 14:05 depressive disorder; Anxiety; tourettes; iw - Immunization history:: Adult Immunizations not up to date. - Infectious Disease History:: Denies. - Social history:: Smoking status: Reported history of juuling and/or vaping. Screenin:09 [facility] ED Fall Risk Assessment (Adult) History of falling in the last 3 months, me1 including since admission No falls in past 3 months (0 pts) Confusion or Disorientation No (0 pts) Intoxicated or Sedated No (0 pts) Impaired Gait No (0 pts) Mobility Assist Device Used No (0 pt) Altered Elimination No (0 pt) Score/Fall Risk Level 0 - 2 = Low Risk Maintained a safe environment, Provided non-skid footwear, Hourly rounding (assess needs \T\ fall precautionary measures) done. 14:11 Abuse screen: Denies threats or abuse. Nutritional screening: No deficits noted. me1 Tuberculosis screening: No symptoms or risk factors identified. Assessment: 14:09 General: Appears ill, Behavior is calm, cooperative, appropriate for age, Reports me1 nauseous, dizzy, shaking , vomiting today , he woke up at 7am and felt dizzy and light headed, could not stand up straight. Pain: Denies pain. Neuro: Level of Consciousness is awake, alert, obeys commands, Oriented to person, place, time, situation, Appropriate for age Reports dizziness, since 7 am. Cardiovascular: Patient's skin is warm and dry. Respiratory: Airway is patent Respiratory effort is even, unlabored, Respiratory pattern is regular, symmetrical. GI: Abdomen is non-distended, Reports nausea, vomiting, since this morning. : No signs and/or symptoms were reported regarding the genitourinary system. EENT: No signs and/or symptoms were reported regarding the EENT system. Derm: Skin is intact, is healthy with good turgor, Skin is pink, warm \T\ dry. Musculoskeletal: No signs and/or symptoms reported regarding the musculoskeletal system. Vital Signs: 14:03 BP 123 / 78; Pulse 76; Resp 19; Temp 98.6; Pulse Ox 97% on R/A; Weight 84.82 kg; Height iw 5 ft. 7 in. ; 14:45 BP 117 / 67; Pulse 52; Resp 15; Temp 98.5; Pulse Ox 99% ; me1 14:03 Body Mass Index 29.29 (84.82 kg, 170.18 cm) iw ED Course: 13:51 Patient arrived in ED. cj3 13:51 Kwame Shukla MD is Attending Physician. sp3 14:05 Triage completed. iw 14:05 Arm band placed on. iw 14:07 Karin Maldonado, JOSIAS is Primary Nurse. me1 14:11 Patient has correct armband on for positive identification. Bed in low position. Call oh1 light in reach. Side rails up X2. Provided Education on: POC. Verbalized understanding.. Client placed on continuous cardiac and pulse oximetry monitoring. NIBP monitoring applied. Pulse ox on. NIBP on. 14:11 No provider procedures requiring assistance completed. me1 14:19 Initial lab(s) drawn, by me, sent to lab. Inserted saline lock: 20 gauge in right me1 antecubital area, using aseptic technique. 14:20 CBC with Diff Sent. me1 14:20 CMP Sent. oh1 14:20 Lipase Sent. me1 14:28 Urinalysis w/ reflexes Sent. me1 14:28 Urine collected: clean catch specimen, clear. me1 14:57 IV discontinued, intact, bleeding controlled, No redness/swelling at site. Pressure me1 dressing applied. Administered Medications: 14:28 Drug: Ondansetron IVP 4 mg IVP once; over 2 minutes Route: IVP; Site: right antecubital;me1 14:55 Follow up: Response: No adverse reaction; Nausea is decreased me1 14:28 Drug: NS 0.9% IV 1000 ml IV at 1 bolus Per protocol; to be given as a bolus over 60 me1 minutes Route: IV; Rate: 1 bolus; Site: right antecubital; 14:55 Follow up: Response: No adverse reaction; IV Status: Completed infusion me1 Medication: 14:09 VIS not applicable for this client. me1 Outcome: 14:49 Discharge ordered by . sp3 14:57 Discharged to home ambulatory, me1 14:57 Condition: stable 14:57 Discharge instructions given to patient, Instructed on discharge instructions, follow up and referral plans. medication usage, Demonstrated understanding of instructions, follow-up care, medications, Prescriptions given X 1, 14:59 Patient left the ED. me1 Signatures: Nella Cee RN RN iw Kwame Shukla MD MD sp3 Karin Maldonado RN RN oh1 Allie Mauricio 3 Corrections: (The following items were deleted from the chart) 14:06 14:03 BP 123 / 78; Pulse 76bpm; Resp 19bpm; Pulse Ox 97% RA; Temp 98.6F; iw iw 14:09 14:03 Chief complaint: Friend and/or Co-Worker states: nauseous, dizzy, shaking , me1 vomiting today , he woke up at 7am and felt dizzy and light headed, could not stand up straight iw 14:12 14:09 Musculoskeletal: No signs and/or symptoms reported regarding the musculoskeletal oh1 system. me1
--- NOTE | 2024-10-14 14:50 | EDPHYS ---
Physician Documentation [facility] Name: Rod Martínez Age: 19 yrs Sex: Male : 2005 Arrival Date: 10/14/2024 Time: 13:46 Bed 18 Private MD: ED Physician Kwame Shukla HPI: 10/14 14:19 This 19 yrs old Male presents to ER via Wheelchair with complaints of sp3 Nausea/Vomiting/Diarrhea, Chest Tightness, Balance Instability. 14:19 19-year-old male with history of depression, anxiety, Tourette's presents to the ED sp3 with chief complaint nausea, vomiting, body aches and feelings of dehydration. Patient thinks he may have "a GI bug". He denies any fever, chest pain, shortness of breath, syncope, known sick contacts, travel history, blood or mucus in emesis or stool, or any other signs or symptoms on ROS at this time.. Historical: - Allergies: 14:05 No Known Allergies; iw - PMHx: 14:05 depressive disorder; Anxiety; tourettes; iw - Immunization history:: Adult Immunizations not up to date. - Infectious Disease History:: Denies. - Social history:: Smoking status: Reported history of juuling and/or vaping. ROS: 14:19 Constitutional: Negative for fever, chills, and weight loss, Eyes: Negative for injury, sp3 pain, redness, and discharge, ENT: Negative for injury, pain, and discharge, Neck: Negative for injury, pain, and swelling, Cardiovascular: Negative for chest pain, palpitations, and edema, Respiratory: Negative for shortness of breath, cough, wheezing, and pleuritic chest pain, Back: Negative for injury and pain, MS/Extremity: Negative for injury and deformity, Skin: Negative for injury, rash, and discoloration, Neuro: Negative for headache, weakness, numbness, tingling, and seizure, Psych: Negative for depression, anxiety, suicide ideation, homicidal ideation, and hallucinations, Allergy/Immunology: Negative for hives, rash, and allergies, Endocrine: Negative for neck swelling, polydipsia, polyuria, polyphagia, and marked weight changes, Hematologic/Lymphatic: Negative for swollen nodes, abnormal bleeding, and unusual bruising, 14:19 All other systems are negative, Exam: 14:19 Constitutional: This is a well developed, well nourished patient who is awake, alert, sp3 and in no acute distress. Head/Face: Normocephalic, atraumatic. Eyes: Pupils equal round and reactive to light, extra-ocular motions intact. Lids and lashes normal. Conjunctiva and sclera are non-icteric and not injected. Cornea within normal limits. Periorbital areas with no swelling, redness, or edema. ENT: Nares patent. No nasal discharge, no septal abnormalities noted. External auditory canals are clear. Oropharynx with no redness, swelling, or masses, exudates, or evidence of obstruction, uvula midline. Mucous membranes moist. Neck: Trachea midline, no thyromegaly or masses palpated, and no cervical lymphadenopathy. Supple, full range of motion without nuchal rigidity, or vertebral point tenderness. No Meningismus. Chest/axilla: Normal chest wall appearance and motion. Nontender with no deformity. No lesions are appreciated. Cardiovascular: Regular rate and rhythm with a normal S1 and S2. No gallops, murmurs, or rubs. Normal PMI, no JVD. No pulse deficits. Respiratory: Lungs have equal breath sounds bilaterally, clear to auscultation and percussion. No rales, rhonchi or wheezes noted. No increased work of breathing, no retractions or nasal flaring. Abdomen/GI: Soft, non-tender, with normal bowel sounds. No distension or tympany. No guarding or rebound. No evidence of tenderness throughout. Back: No spinal tenderness. No costovertebral tenderness. Full range of motion. Skin: Warm, dry with normal turgor. Normal color with no rashes, no lesions, and no evidence of cellulitis. MS/ Extremity: Pulses equal, no cyanosis. Neurovascular intact. Full, normal range of motion. Neuro: Awake and alert, GCS 15, oriented to person, place, time, and situation. Cranial nerves II-XII grossly intact. Motor strength 5/5 in all extremities. Sensory grossly intact. Cerebellar exam normal. Normal gait. Psych: Awake, alert, with orientation to person, place and time. Behavior, mood, and affect are within normal limits. Vital Signs: 14:03 BP 123 / 78; Pulse 76; Resp 19; Temp 98.6; Pulse Ox 97% on R/A; Weight 84.82 kg; Height iw 5 ft. 7 in. ; 14:45 BP 117 / 67; Pulse 52; Resp 15; Temp 98.5; Pulse Ox 99% ; me1 14:03 Body Mass Index 29.29 (84.82 kg, 170.18 cm) iw MDM: 14:07 Medical Screening Exam initiated sp3 14:19 Data reviewed: vital signs, nurses notes, lab test result(s), radiologic studies. ED sp3 course: 19-year-old male with GI symptoms of vomiting, diarrhea and bodyaches. Differential diagnosis includes viral illness, foodborne illness, other intra-abdominal pathology. Abdomen is benign I am not highly suspicious of surgical abdomen or any other surgical emergency. Will obtain general labs and administer IV fluids and ondansetron IV. Disposition probable discharge if workup negative.. 14:48 ED course: Full workup negative. Vital signs remain normal. Patient is improved. Will sp3 discharge him home on ondansetron and follow-up to PCP.. 10/14 14:09 Order name: CBC with Diff; Complete Time: 14:48 sp3 10/14 14:09 Order name: CMP; Complete Time: 14:48 sp3 10/14 14:09 Order name: Lipase; Complete Time: 14:48 sp3 10/14 14:09 Order name: Urinalysis w/ reflexes; Complete Time: 14:48 sp3 10/14 14:09 Order name: IV Saline Lock; Complete Time: 14:20 sp3 10/14 14:09 Order name: Labs collected and sent; Complete Time: 14:20 sp3 Administered Medications: 14:28 Drug: Ondansetron IVP 4 mg IVP once; over 2 minutes Route: IVP; Site: right antecubital;me1 14:55 Follow up: Response: No adverse reaction; Nausea is decreased me1 14:28 Drug: NS 0.9% IV 1000 ml IV at 1 bolus Per protocol; to be given as a bolus over 60 me1 minutes Route: IV; Rate: 1 bolus; Site: right antecubital; 14:55 Follow up: Response: No adverse reaction; IV Status: Completed infusion me1 Disposition Summary: 10/14/24 14:49 Discharge Ordered Notes: Location: Home sp3 Condition: Stable sp3 Diagnosis - Viral gastroenteritis, nausea, vomiting, diarrhea sp3 Followup: sp3 - With: Private Physician - When: Upon discharge from the Emergency Department - Reason: Recheck today's complaints Discharge Instructions: - Discharge Summary Sheet sp3 Forms: - Medication Reconciliation Form sp3 - Antibiotic Education sp3 - Prescription Opioid Use sp3 - Patient Portal Instructions sp3 - Leadership Thank You Letter sp3 - Work release form me1 Prescriptions: - ondansetron 8 mg Oral Tablet,disintegrating - take 1 tablet ORAL route every 12 hours; 20 tablet; Refills: 0, Product sp3 Selection Permitted Signatures: Dispatcher [employer] Nella Pineda, RN RN iw Kwame Shukla MD MD sp3 Karin Maldonado RN RN me1
[2024-10-14 15:11] VITALS: BP 117/67; TEMP 98.5; O2SAT 99
== END 2024-10-14 14:59 | disposition home or self-care (01) ==
LOC: ER 13:46
DX: A08.4 Viral intestinal infection, unspecified (principal)
CPT/HCPCS: 85025; 36415; 81003; 83690; 80053; J2405; J7030